=== PATIENT | female | born 2000 | race Caucasian/White ===

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

== ENCOUNTER 2021-03-23 16:08 | Emergency (ER) | payer OTHER ==
[2021-03-23 16:49] VITALS: BP 110/53; PULSE 68; RESP 18; TEMP 99.8
--- NOTE | 2021-03-23 19:36 | ED ---
General Adult HPI - General Chief complaint: ENT Stated complaint: Sore throat Time Seen by Provider: 03/23/21 18:47 Source: patient, RN notes reviewed Mode of arrival: ambulatory Limitations: no limitations - History of Present Illness Initial comments: 21-year-old female presents to the emergency department for evaluation of sore throat. Patient states she was treated for strep throat a few weeks ago and had improvement in symptoms until recently. States she is again experiencing sore throat and sensation of difficulty swallowing. Patient states she was prescribed a steroid but was uncertain of when or if she should be taking it. Reports feeling poorly and decreased oral intake. States she has had a cough since having Covid in January and is experiencing chest pain when coughing. Patient denies fever, chills, headache, shortness of breath, difficulty breathing, abdominal pain, nausea, vomiting, diarrhea, or dysuria. - Related Data Home Medications Medication Instructions Recorded Confirmed Cetirizine HCl [Zyrtec] 10 mg PO DAILY 06/14/17 06/14/17 Omeprazole [PriLOSEC] 20 mg PO AC-BID 06/14/17 06/14/17 Allergies Allergy/AdvReac Type Severity Reaction Status Date / Time No Known Allergies Allergy Verified 03/23/21 16:49 Review of Systems ROS Statement: Those systems with pertinent positive or pertinent negative responses have been documented in the HPI. ROS Other: All systems not noted in ROS Statement are negative. Past Medical History Past Medical History: No Reported History Additional Past Medical History / Comment(s): HAS BEEN HAVING STOMACH ISSUES SINCE DEC 2016 History of Any Multi-Drug Resistant Organisms: None Reported Past Surgical History: No Surgical Hx Reported Past Anesthesia/Blood Transfusion Reactions: No Reported Reaction Additional Past Anesthesia/Blood Transfusion Reaction / Comment(s): NO PRIOR SX HX Past Psychological History: No Psychological Hx Reported Smoking Status: Never smoker Past Alcohol Use History: None Reported Past Drug Use History: None Reported - Past Family History Father Family Medical History: Pulmonary Embolus General Exam Limitations: no limitations (Well-developed, well-nourished female in no acute distress. Initial temperature 99.8, pulse 68, respirations 18, blood pressure 110/53, pulse ox 98% on room air.) General appearance: alert, in no apparent distress Expanded Mouth exam: Present: normal external inspection Throat exam: tonsillomegaly. negative: tonsillar erythema, tonsillar exudate (slightly enlarged tonsils; non-erythematous, no exudate.), R peritonsillar mass, L peritonsillar mass Neck exam: Present: tenderness (Anterior, posterior, cervical, and submandibular tenderness upon palpation; no palpable enlarged lymph nodes.) Respiratory exam: Present: normal lung sounds bilaterally, other (Does complain of chest pain with coughing). Absent: respiratory distress, wheezes, rales, rhonchi, stridor, chest wall tenderness Cardiovascular Exam: Present: regular rate, normal rhythm, normal heart sounds. Absent: systolic murmur, diastolic murmur, rubs, gallop, clicks GI/Abdominal exam: Present: soft, normal bowel sounds. Absent: distended, tenderness, guarding, rebound, rigid Neurological exam: Present: alert, oriented X3, CN II-XII intact Psychiatric exam: Present: normal affect, normal mood Skin exam: Present: warm, dry, intact, normal color. Absent: rash Course Vital Signs 03/23/21 16:42 Temperature 99.8 F H Pulse Rate 68 Respiratory 18 Rate Blood Pressure 110/53 O2 Sat by Pulse 98 Oximetry - Reevaluation(s) Reevaluation #1: 03/23/21 20:15 Upon reevaluation, Patient is tolerating oral intake without difficulty. No difficulty breathing or swallowing. Discussed findings and reiterated importance of taking steroid as prescribed. Patient verbalizes understanding of plan of care. Medical Decision Making - Medical Decision Making 21-year-old female presents to the emergency department for evaluation of sore throat. Patient has recently been treated with 2 courses of oral antibiotic for positive strep. States she also had Covid 2 months ago. Had a negative Monospot earlier this week as well. Upon exam, patient is well-appearing and in no acute distress. Vital signs are stable. Oropharynx is not erythematous; no tonsillar exudate or hypertrophy. No lesions or sores. Patient is tolerating oral intake without difficulty swallowing. Patient states she was prescribed an oral steroid by her PCP but was uncertain of whether or not she should be taking this. I explained the purpose of steroid use in inflammatory processes. Rapid strep was obtained and was negative. Chest x-ray was obtained due to patient's complaint of diffuse chest discomfort with coughing. X-ray was unremarkable. Patient will be discharged home with instructions to begin taking the steroid prescribed by her PCP. Return parameters discussed with patient. Questions answered, she verbalizes understanding and agrees with this plan. - Lab Data Lab Results 03/23/21 Range/Units 19:46 Group A Strep Rapid Negative (Negative) - Radiology Data Radiology results: report reviewed, image reviewed Two-view chest x-ray was obtained. Report was reviewed in its entirety. Impression per Dr. Vazquez is no acute cardiopulmonary process. Disposition Clinical Impression: Costochondritis, Pharyngitis Disposition: HOME SELF-CARE Condition: Stable Instructions (If sedation given, give patient instructions): Pharyngitis (ED), Costochondritis (ED) Additional Instructions: Take the steroid that you were prescribed. May alternate Tylenol and Motrin as needed for discomfort. Follow-up with your PCP for a recheck as needed. Return to the emergency department for any new, worsening, or concerning symptoms. Is patient prescribed a controlled substance at d/c from ED?: No Referrals: Gabby Farr MD [Primary Care Provider] - 1-2 days Time of Disposition: 20:52
--- NOTE | 2021-03-23 20:14 | XR ---
EXAMINATION TYPE: XR chest 2V DATE OF EXAM: 03/23/2021 COMPARISON: NONE HISTORY: Throat and chest pain. TECHNIQUE: Frontal and lateral views of the chest are obtained. FINDINGS: There is no focal air space opacity, pleural effusion, or pneumothorax seen. The cardiac silhouette size is within normal limits. The osseous structures are intact. IMPRESSION: No acute cardiopulmonary process.
== END 2021-03-23 21:13 | disposition home or self-care (01) ==
LOC: EC 16:08
DX: M94.0 Chondrocostal junction syndrome [Tietze] (principal); J02.9 Acute pharyngitis, unspecified
CPT/HCPCS: 71046; 87081; 87430; 99284

== ENCOUNTER 2021-05-03 13:39 | Emergency (ER) | payer OTHER ==
[2021-05-03 13:54] VITALS: BP 125/77; PULSE 91; RESP 18; TEMP 98.7
[2021-05-03] MEDS ORDERED: DEXAMETHASONE SOD PHOSPHATE 10 MG/ML 1 ML VIAL IM STA (14:11)
--- NOTE | 2021-05-03 14:18 | ED ---
ENT HPI - General Chief complaint: ENT Stated complaint: throat issues Time Seen by Provider: 05/03/21 14:00 Source: patient, RN notes reviewed Mode of arrival: ambulatory Limitations: no limitations - History of Present Illness Initial comments: This is a pleasant 21-year-old female who presents to emergency [facility] sore throat with postnasal drainage for the past 2 days. ACEs this happen several times since February 06. Patient states she continues to be treated with antibiotics and sent home. Recently saw her primary care physician earlier in the week and was prescribed antibiotics and told to follow-up with your nose and throat. She was unable to get the aunt arise. They were never sent to the pharmacy. Patient now stating that her throat hurt worse this morning. Patient states when she gets up she has a irritated, raw sensation in her throat and has to clear her throat. She is also states that drinking water seems to help. Patient does have a history of ALLERGIES and does take a daily antihistamine. No headache, no fever or chills, no changes in vision or hearing,no difficulty with speech, no neck pain, no chest pain or shortness of breath, no abdominal pain, no nausea or vomiting, no changes in urination or bowel movements, no numbness or tingling, no extremity pain, no skin rashes or lesions. - Related Data Home Medications Medication Instructions Recorded Confirmed DULoxetine HCL [Cymbalta] 60 mg PO DAILY 05/03/21 05/03/21 Levonor-Eth Estrad 0.15/0.03mg 1 tab PO DAILY 05/03/21 05/03/21 Loratadine [Claritin] 10 mg PO DAILY 05/03/21 05/03/21 Pantoprazole Sodium [Protonix] 20 mg PO DAILY 05/03/21 05/03/21 busPIRone HCl [Buspar] 5 mg PO DAILY PRN 05/03/21 05/03/21 traZODone HCL [Desyrel] 100 mg PO HS 05/03/21 05/03/21 Previous Rx's Medication Instructions Recorded Fluticasone Nasal [place] [Flonase 2 spray EA NOSTRIL DAILY #16 gm 05/03/21 Nasal [place]] diphenhydrAMINE [Benadryl] 25 mg PO HS PRN #24 capsule 05/03/21 Allergies Allergy/AdvReac Type Severity Reaction Status Date / Time No Known Allergies Allergy Verified 05/03/21 15:43 Review of Systems ROS Statement: Those systems with pertinent positive or pertinent negative responses have been documented in the HPI. ROS Other: All systems not noted in ROS Statement are negative. Past Medical History Past Medical History: No Reported History Additional Past Medical History / Comment(s): HAS BEEN HAVING STOMACH ISSUES SINCE DEC 2016 History of Any Multi-Drug Resistant Organisms: None Reported Past Surgical History: No Surgical Hx Reported Past Anesthesia/Blood Transfusion Reactions: No Reported Reaction Additional Past Anesthesia/Blood Transfusion Reaction / Comment(s): NO PRIOR SX HX Past Psychological History: No Psychological Hx Reported Smoking Status: Never smoker Past Alcohol Use History: None Reported Past Drug Use History: None Reported - Past Family History Father Family Medical History: Pulmonary Embolus General Exam - General Exam Comments Initial Comments: Patient no acute distress. Patient does not appear to be ill or toxic. Limitations: no limitations General appearance: alert, in no apparent distress Head exam: Present: atraumatic, normocephalic, normal inspection Eye exam: Present: normal appearance, PERRL, EOMI. Absent: scleral icterus, conjunctival injection, periorbital swelling ENT exam: Present: normal exam, normal oropharynx, mucous membranes dry, mucous membranes moist, TM's normal bilaterally, normal external ear exam, other (Patient has edematous turbinates with some clear nasal discharge. Clear postnasal drainage. No tonsillar adenopathy.) Expanded Ear exam: Present: normal external inspection Mouth exam: Present: normal external inspection. Absent: drooling, trismus, muffled voice, tongue normal, tongue elevation, laceration Teeth exam: Present: normal inspection Throat exam: tonsillomegaly, other (Patient has large tonsils but has no evidence of inflammation. No evidence of peritonsillar abscess. No evidence of Abdiel angina or deep space infection). negative: tonsillar erythema, tonsillar exudate, R peritonsillar mass, L peritonsillar mass Neck exam: Present: normal inspection, full ROM. Absent: tenderness, me ningismus, lymphadenopathy Respiratory exam: Present: normal lung sounds bilaterally. Absent: respiratory distress, wheezes, rales, rhonchi, stridor Cardiovascular Exam: Present: regular rate, normal rhythm, normal heart sounds. Absent: systolic murmur, diastolic murmur, rubs, gallop, clicks GI/Abdominal exam: Present: soft, normal bowel sounds. Absent: distended, tenderness, guarding, rebound, rigid Extremities exam: Present: normal inspection, full ROM, normal capillary refill. Absent: tenderness, pedal edema, joint swelling, calf tenderness Back exam: Present: normal inspection Neurological exam: Present: alert, oriented X3, CN II-XII intact Psychiatric exam: Present: normal affect, normal mood Skin exam: Present: warm, dry, intact, normal color. Absent: rash Course Vital Signs 05/03/21 13:51 Temperature 98.7 F Pulse Rate 91 Respiratory 18 Rate Blood Pressure 125/77 O2 Sat by Pulse 97 Oximetry Medical Decision Making - Medical Decision Making We'll prescribe the patient fluticasone nasal spray. Have her continue her antihistamine. Patient was given 1 dose of dexamethasone here. We'll give follow-up with your nose and throat. Monospot, Streptococcus screen, and COVID-19 testing was negative. Patient was told to return to the ER for any signs or symptoms worsen. Told to return immediately if any other problems arise. All questions answered. Treatment plan discussed. Patient in agreement Every effort has been made to ensure accuracy of this dictation. However, due to the limitations of electronic medical records and dictation devices, errors in charting still occur. Patient's workup appears essentially negative. CBC was normal. Streptococcus testing was normal. Influenza, COVID-19, and mononucleosis testing was all negative. Patient symptomology consistent with postnasal drainage. We'll treat with fluticasone and antihistamines. Patient given follow-up with ENT. There was no evidence of infectious etiology. - Lab Data Result diagrams: 05/03/21 15:00 Lab Results 05/03/21 05/03/21 05/03/21 Range/Units 15:00 15:00 15:00 WBC 10.6 (3.8-10.6) k/uL RBC 4.53 (3.80-5.40) m/uL Hgb 13.0 (11.4-16.0) gm/dL Hct 39.8 (34.0-46.0) % MCV 87.8 (80.0-100.0) fL MCH 28.6 (25.0-35.0) pg MCHC 32.6 (31.0-37.0) g/dL RDW 12.5 (11.5-15.5) % Plt Count 194 (150-450) k/uL MPV 10.3 Coronavirus (PCR) Not Detected (Not Detectd) Heterophile Antibody Negative (Negative) Group A Strep Rapid (Negative) 05/03/21 Range/Units 15:00 WBC (3.8-10.6) k/uL RBC (3.80-5.40) m/uL Hgb (11.4-16.0) gm/dL Hct (34.0-46.0) % MCV (80.0-100.0) fL MCH (25.0-35.0) pg MCHC (31.0-37.0) g/dL RDW (11.5-15.5) % Plt Count (150-450) k/uL MPV Coronavirus (PCR) (Not Detectd) Heterophile Antibody (Negative) Group A Strep Rapid Negative (Negative) Disposition Clinical Impression: Allergic rhinitis, Post-nasal drainage Disposition: HOME SELF-CARE Condition: Good Instructions (If sedation given, give patient instructions): Allergic Rhinitis (ED) Additional Instructions: Make a follow-up appointment with her nose and throat doctor as discussed. Follow-up with your regular physician as directed. Return to the ER immediately if any symptoms worsen, new symptoms arise, or any other problems develop. Prescriptions: diphenhydrAMINE [Benadryl] 25 mg PO HS PRN #24 capsule PRN Reason: Itching Fluticasone Nasal [place] [Flonase Nasal [place]] 2 spray EA NOSTRIL DAILY #16 gm Is patient prescribed a controlled substance at d/c from ED?: No Referrals: Pierre Prather MD [STAFF PHYSICIAN] - 05/07/21 Time of Disposition: 16:13
[2021-05-03 15:09] LABS: HCT 39.8 % (34.0-46.0); MCH 28.6 pg (25.0-35.0); MCHC 32.6 g/dL (31.0-37.0); MCV 87.8 fL (80.0-100.0); Mean Platelet Volume 10.3; Platelet Count 194 k/uL (150-450); RBC 4.53 m/uL (3.80-5.40); RDW 12.5 % (11.5-15.5); WBC 10.6 k/uL (3.8-10.6)
== END 2021-05-03 16:34 | disposition home or self-care (01) ==
LOC: EC 13:39
DX: J30.9 Allergic rhinitis, unspecified (principal); R09.82 Postnasal drip
CPT/HCPCS: 36415; 85027; 86308; 87081; 87430; 87635; 96372; 99283

== ENCOUNTER → 2023-06-25 | Outpatient (CLI) | payer BC ==
--- NOTE | 2023-06-28 07:33 | USB ---
Reason for Exam: Clinical finding. Indicated Problems: Lump or thickening of the left side for 5 Month(s). Patient History: Menarche at age 15. Patient has no children. Premenopausal. Paternal aunt had breast cancer, age 23. Paternal grandfather had other cancer. Paternal grandmother had other cancer. Technique: Method: Targeted. Doppler: Color. Patient Position: Supine. Prior Study Comparison: Baseline Ultrasound. No prior studies available for comparison. Findings: The lower inner quadrant of the left breast, the axilla of the left breast and the retroareolar of the left breast were scanned. No solid or cystic masses are identified. Some thickening of the pectoralis muscle is not excluded. Overall Assessment: Benign, BI-RAD 2 Management: Screening Mammogram of both breasts in 2 years. A clinical breast exam by your physician is recommended on an annual basis and results should be correlated with mammographic findings. This exam should not preclude additional follow-up of suspicious palpable abnormalities. Results were given to the patient verbally at the time of exam. Electronically signed and approved by: Dino Ruff D.O. Radiologis
== END | disposition home or self-care (01) ==
LOC: RADUSWWP 13:37
PROVIDERS: ATTEND Surgery Plastic and Reconstructive Surgery
DX: N63.20 Unspecified lump in the left breast, unspecified quadrant (principal); Z80.3 Family history of malignant neoplasm of breast

== ENCOUNTER 2023-08-13 05:37 | Day surgery (SDC) | payer BC, OTHER ==
[2023-08-11 11:38] VITALS: BMI 32.3
[~2023-08-13 05:37] MED LIST changes: -LACTATED RINGERS 1,000 ML IV SCH; +LIDOCAINE 1% (10MG/ML) FOR IV START INTRADERMA PRN; +Pre Op ABX Message 1 EACH MISC MISCELLANE ONE
--- NOTE | 2023-08-13 06:46 | P.GSHP ---
History of Present Illness H&P Date: 08/13/23 CHIEF COMPLAINT: Abdominal mass HISTORY OF PRESENT ILLNESS: The patient is a 23-year-old female with history of mass along the abdomen. She reports pain and discomfort with tenderness. Symptoms has been longstanding for over 6 months. She presents today for surgical excision. PAST MEDICAL HISTORY: Please see list. PAST SURGICAL HISTORY: Please see list. MEDICATIONS: Please see list. ALLERGIES: Please see list. SOCIAL HISTORY: No illicit drug use FAMILY HISTORY: No reports of Crohn disease or ulcerative colitis. REVIEW OF ORGAN SYSTEMS: CONSTITUTIONAL: No reports of fevers or chills. GI: Denies any blood in stools or constipation. PHYSICAL EXAM: VITAL SIGNS: Stable Skin: 4 cm tumor along the left chest wall. She reports another one along the left breast at the 3 oclock to 6 oclock position of the left outer lower quadrant of the breast. Musculoskeletal: No clubbing cyanosis or edema GENERAL: Well developed and in no acute distress. Pleasant. HEENT: No sclera icterus. Extraocular movements grossly intact. Moist buccal mucosa. Head is atraumatic, normocephalic. Hears conversational speech. No nasal drainage. NECK: Supple without lymphadenopathy. No JV distention. CHEST: Non-labored respirations and equal bilateral excursions. CARDIOVASCULAR: Regular rate and rhythm. Palpable 2+ radial pulses. ABDOMEN: Soft. Non-tender. Nondistended. NEUROLOGIC: No focal or lateralizing signs. PSYCH: Appropriate affect. Alert and oriented to person, place and time. ASSESSMENT: 1. Mass along left abdomen PLAN: 1. Will proceed of excision of subcutaneous tumor along the abdomen 2. DVT prophylaxis. 3. Antibiotic prophylaxis. 4. Time of recovery, at least one week. Past Medical History Past Medical History: GERD/Reflux Additional Past Medical History / Comment(s): IBS-C. Migraines. History of Any Multi-Drug Resistant Organisms: None Reported Past Surgical History: Tonsillectomy Past Anesthesia/Blood Transfusion Reactions: No Reported Reaction, Motion Sickness Additional Past Anesthesia/Blood Transfusion Reaction / Comment(s): NO PRIOR SX HX Smoking Status: Never smoker - Past Family History Father Family Medical History: Pulmonary Embolus Medications and Allergies Home Medications Medication Instructions Recorded Confirmed Type DULoxetine HCL [Cymbalta] 60 mg PO HS 05/03/21 08/13/23 History Propranolol [Inderal] 10 mg PO HS 08/11/23 08/13/23 History busPIRone HCL [Buspirone HCl] 10 mg PO 08/11/23 08/13/23 History Allergies Allergy/AdvReac Type Severity Reaction Status Date / Time No Known Allergies Allergy Verified 08/13/23 06:18 Surgical - Exam Vital Signs Temp Pulse Resp BP Pulse Ox 98.0 F 68 18 109/53 96 08/13/23 06:31 08/13/23 06:31 08/13/23 06:31 08/13/23 06:31 08/13/23 06:31
[2023-08-13] MEDS: ACETAMINOPHEN TAB 500 MG TAB PO PRN (06:50)
[2023-08-13 06:51] LABS: Basophils # (A) 0.1 k/uL (0-0.2); Basophils % (A) 1 %; Eosinophils # (A) 0.1 k/uL (0-0.7); Eosinophils % (A) 1 %; HCT 42.1 % (34.0-46.0); HGB 13.4 gm/dL (11.4-16.0); Lymphocytes # (A) 3.2 k/uL (1.0-4.8); Lymphocytes % (A) 38 %; MCH 27.5 pg (25.0-35.0); MCHC 31.8 g/dL (31.0-37.0); MCV 86.5 fL (80.0-100.0); Mean Platelet Volume 7.7; Monocytes # (A) 0.4 k/uL (0-1.0); Monocytes % (A) 4 %; Neutrophils # (A) 4.5 k/uL (1.3-7.7); Neutrophils % (A) 54 %; Platelet Count 319 k/uL (150-450); RBC 4.86 m/uL (3.80-5.40); RDW 12.3 % (11.5-15.5); WBC 8.4 k/uL (3.8-10.6)
[2023-08-13] MEDS: MELOXICAM 7.5 MG TAB PO PRN (06:51)
[2023-08-13] MEDS: HEPARIN SODIUM,PORCINE 5,000 UNIT/ML 1 ML VIAL SQ PRN (06:51)
[2023-08-13] MEDS: ONDANSETRON 4 MG/2 ML VIAL IVP ONE (06:52)
[2023-08-13] MEDS: DEXAMETHASONE SOD PHOSPHATE 4 MG/ML 1 ML VIAL IV ONE (06:52)
[2023-08-13] MEDS: LACTATED RINGERS 1,000 ML IV SCH (06:59)
[2023-08-13] MEDS ORDERED: MIDAZOLAM 2 MG/2 ML VIAL IV PRN (07:00)
[2023-08-13] MEDS ORDERED: fentaNYL (PF) 50 MCG/ML 2 ML AMP IV PRN (07:00)
[2023-08-13] MEDS ORDERED: HYDROmorphone 0.5 MG/0.5 ML SYRINGE IVP PRN (07:00)
[2023-08-13] MEDS ORDERED: LIDOCAINE 1% INJ 10MG/ML (20 ML MDV) ONE (07:33)
[2023-08-13] MEDS ORDERED: MIDAZOLAM 2 MG/2 ML VIAL ONE (07:33)
[2023-08-13] MEDS ORDERED: PROPOFOL 10 MG/ML 20 ML VIAL IV ONE (07:33)
[2023-08-13] MEDS ORDERED: SUCCINYLCHOLINE CHLORIDE 200 MG/10 ML VIAL IV ONE (07:33)
[2023-08-13] MEDS ORDERED: fentaNYL (PF) 50 MCG/ML 2 ML AMP ONE (07:33)
[2023-08-13] MEDS: LIDOCAINE 1%-EPI 1:100,000 20 ML VIAL SQ ONE (07:55)
[2023-08-13 08:32] VITALS: TEMP 97.3
[2023-08-13 09:39] VITALS: RESP 14
[2023-08-13 09:50] VITALS: BP 118/68; PULSE 74
--- NOTE | 2023-08-17 09:39 | P.OP ---
Date of Procedure: 08/13/23 Description of Procedure: SURGEON: GUERDA ESQUIVEL MD PREOPERATIVE DIAGNOSES: 1. Left upper abdominal wall tumor 2. Migraines 3. Depressive disorder 4. Morbid obesity due to excess calories, BMI 35.4 5. Bipolar disorder 6. ADHD 7. Generalized anxiety disorder POSTOPERATIVE DIAGNOSES: 1. Left upper abdominal wall tumor 2. Migraines 3. Depressive disorder 4. Morbid obesity due to excess calories, BMI 35.4 5. Bipolar disorder 6. ADHD 7. Generalized anxiety disorder OPERATION: 1. Excision of the left upper abdominal subfascial tumor, 6 x 6 cm 2. Intermediate closure abdominal incision, 6 cm ANESTHESIA: General endotracheal anesthesia, local ESTIMATED BLOOD LOSS: 5 mL. SPECIMENS REMOVED: Upper abdominal wall tumor. COMPLICATIONS: None. FINDINGS: 1. Subcutaneous nodule excised 6 x 6 cm consistent with a lipoma INDICATIONS: The patient is a 23-year-old female who presents with a painful abdominal wall tumor over 1 to 2 years. Surgical options, including excision was discussed. Benefits and risks were described. Informed consent was obtained. DESCRIPTION OF PROCEDURE: Patient was brought into the operating room, laid in supine position. After intubation, the abdomen was prepped and draped in standard sterile fashion using ChloraPrep. A timeout protocol was confirmed with the surgical team regarding patient's name including procedures to be performed. Next, field block using local anesthetic was administered along the left upper abdomen with a palpable subfascial nodule. A transverse incision 6-cm was made and wide local incision 6 x 6 cm was made of subcutaneous tumor. Using electro- Bovie cautery, the tumor was excised deep to the fascia. Hemostasis was checked with electro- Bovie cautery. The specimen was passed off. Next the wound was closed in layers using 0 Vicryl and 3-0 Vicryl for the deep subcutaneous tissue followed by a running subcuticular suture of 4-0 Monocryl. The skin was cleansed and Dermabond tape and Optifoam was applied. At the end of the procedure, needle, sponge, and instrument count had been verified correct by the surgical nurse. The patient was taken to the postanesthesia care unit in stable condition. Plan - Discharge Summary Discharge Rx Participant: Yes New Discharge Prescriptions: New Ibuprofen [Motrin] 600 mg PO Q8HR PRN #30 tab PRN Reason: Pain Acetaminophen Tab [Tylenol Tab] 1,000 mg PO Q6HR PRN #30 tablet PRN Reason: Pain Continue Propranolol [Inderal] 10 mg PO HS DULoxetine HCL [Cymbalta] 60 mg PO HS busPIRone HCL 10 mg PO HS Discharge Medication List DULoxetine HCL [Cymbalta] 60 mg PO HS 05/03/21 [History] Propranolol [Inderal] 10 mg PO HS 08/11/23 [History] busPIRone HCL 10 mg PO HS 08/11/23 [History] Acetaminophen Tab [Tylenol Tab] 1,000 mg PO Q6HR PRN #30 tablet 08/13/23 [Rx] Ibuprofen [Motrin] 600 mg PO Q8HR PRN #30 tab 08/13/23 [Rx] Follow up Appointment(s)/Referral(s): Guerda Esquivel MD [STAFF PHYSICIAN] - 08/24/23 4:00 pm Patient Instructions/Handouts: *[facility] - Managing Your Pain After Surgery Without Opioids, *[facility] - (Anesthesia) Discharge Instructions Outpatient Surgery, Lipoma Removal (DC) Activity/Diet/Wound Care/Special Instructions: DO NOT REMOVE DRESSING May shower. No bath tub soaks for two weeks until August 26 Diet as tolerated. Use Tylenol and ibuprofen or Aleve scheduled for the next 24-48 hours for best pain relief. Use ice along incisions for today to prevent swelling. Discharge Disposition: HOME SELF-CARE
== END 2023-08-13 10:38 | disposition home or self-care (01) ==
LOC: OR 05:37
PROVIDERS: ATTEND Surgery Plastic and Reconstructive Surgery
DX: D17.1 Benign lipomatous neoplasm of skin and subcutaneous tissue of trunk (principal); E66.01 Morbid (severe) obesity due to excess calories; F31.9 Bipolar disorder, unspecified; F41.1 Generalized anxiety disorder; F90.9 Attention-deficit hyperactivity disorder, unspecified type; K21.9 Gastro-esophageal reflux disease without esophagitis; K58.9 Irritable bowel syndrome, unspecified; Z68.35 Body mass index [BMI] 35.0-35.9, adult; Z79.899 Other long term (current) drug therapy
CPT/HCPCS: 22901; 81025; 88304; 85025; J2250; J0330; J1644; J1100; J0690; J2405; J2001; J3010; J2704